=== PATIENT | male | born 1980 | race Caucasian/White ===

== ENCOUNTER 2016-08-19 19:06 | Emergency (ER) | payer MEDICAID, OTHER ==
[2016-08-19 19:12] VITALS: RESP 20; TEMP 98.6
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
[2016-08-19] MEDS ORDERED: LET GEL TOPICAL 1 EA SYR TP ONE ×2 (19:39→19:50)
[2016-08-19] MEDS ORDERED: CEPHALEXIN 500 MG CAP PO ONE (20:35)
[2016-08-19 21:49] VITALS: BP 122/76; PULSE 66; O2SAT 94
== END 2016-08-19 21:48 | disposition home or self-care (01) ==
PROC: 0HQ1XZZ Repair Face Skin, External Approach (ICD-10-PCS; principal; 2016-08-19)
DX: S01.81XA Laceration without foreign body of other part of head, initial encounter (principal); S01.511A Laceration without foreign body of lip, initial encounter; V18.2XXA Unspecified pedal cyclist injured in noncollision transport accident in nontraffic accident, initial encounter; Y92.89 Other specified places as the place of occurrence of the external cause